=== PATIENT | male | born 1955 | race Caucasian/White ===

== ENCOUNTER → 2024-07-04 | Outpatient (CLI) | payer MEDICARE, SELFPAY ==
--- NOTE | 2024-07-04 09:52 | RAD_ITS ---
STUDY: X-RAY - ORBITS REASON FOR EXAM: Male, 68 years old. Possible metallic foreign body TECHNIQUE: 2 view(s) of the orbits were obtained. COMPARISON: None. FINDINGS: Normal bilateral orbits without a metallic orbital foreign body. Normal visualized facial bones. Normal paranasal sinuses. The soft tissue structures are unremarkable. Metallic dental work RAD/Orbits for Foreign Body IMPRESSION: No demonstrated metallic orbital foreign body. The patient is cleared for an MRI examination. Electronically Signed: Dario Yusuf MD at 10:18 EST ,
--- NOTE | 2024-07-04 09:52 | MRI_ITS ---
EXAM: MR RIGHT LOWER EXTREMITY WITHOUT INTRAVENOUS CONTRAST, FOOT CLINICAL INDICATION: CAPSALITIS RT FOREFOOT, METATARSALGIA TECHNIQUE: Multiplanar and multisequence MR images of the right foot without intravenous contrast. COMPARISON: No relevant prior studies available. FINDINGS: LIGAMENTS: MEDIAL COLLATERAL: Unremarkable. Intact. LATERAL COLLATERAL: Unremarkable. Intact. LISFRANC: Unremarkable. Intact. TENDONS: FLEXOR: Unremarkable. Intact. EXTENSOR: Unremarkable. Intact. PERONEAL: Unremarkable. Intact. TIBIALIS ANTERIOR: Unremarkable. Intact. TIBIALIS POSTERIOR: Unremarkable. Intact. MUSCLES: Muscles are normal. FLUID: No significant joint effusion. PLANTAR FASCIA: Unremarkable. Intact. BONES/JOINTS: Unremarkable. Normal forefoot alignment. No fracture. No joint effusion. No marrow signal alterations. OTHER SOFT TISSUES: Tendons are intact. No ganglion cyst or other suspicious masses or fluid collections. OTHER FINDINGS: Plantar aponeurosis is unremarkable. MRI/Lower Ext/No Jt/w/o IMPRESSION: No significant internal derangement. Electronically Signed: Enio Bagley MD at 21:27 [facility] ,
--- NOTE | 2024-07-04 09:52 | MRI_ITS ---
EXAM: MR RIGHT LOWER EXTREMITY WITHOUT INTRAVENOUS CONTRAST, ANKLE CLINICAL INDICATION: RT FOOT HEEL MASS,PLANTAR FASCIITIS TECHNIQUE: Multiplanar and multisequence MR images of the right ankle without intravenous contrast. COMPARISON: No relevant prior studies available. FINDINGS: LIGAMENTS: ANTERIOR TALOFIBULAR: Unremarkable. Intact. POSTERIOR TALOFIBULAR: Unremarkable. Intact. ANTERIOR TIBIOFIBULAR: Unremarkable. Intact. POSTERIOR TIBIOFIBULAR: Unremarkable. Intact. CALCANEOFIBULAR: Unremarkable. Intact. DELTOID: Signal alteration involving the deep fibers of the deltoid ligamentous complex is concerning for a low to moderate grade sprain injury. SPRING: Unremarkable. Intact. LISFRANC: Unremarkable. Intact. TENDONS: ACHILLES: Unremarkable. Intact. FLEXOR: Unremarkable. Intact. EXTENSOR: Unremarkable. Intact. PERONEAL: Low-density mass involving the peroneus longus tendon at and distal to the distal fibula. This measures 1.4 x 0.9 cm on the axial images. 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 Peroneus brevis tendon is intact and normal in position. TIBIALIS ANTERIOR: Unremarkable. Intact. TIBIALIS POSTERIOR: Unremarkable. Intact. MUSCLES: Unremarkable. Normal bulk and signal. FLUID: Small tibiotalar joint effusion. Or organized fluid collections. SINUS TARSI: Unremarkable. Normal fat in the sinus tarsi. TARSAL TUNNEL: Unremarkable. PLANTAR FASCIA: Thickening and altered signal of the central cord of the plantar aponeurosis with adjacent fluid signal. CARTILAGE: Unremarkable. No osteochondral lesion. Articular cartilage intact. BONES/JOINTS: Small amount of tibiotalar joint fluid. Ankle mortise is intact. Talar dome intact. No fracture or marrow edema. OTHER SOFT TISSUES: Unremarkable. MRI/Lower Ext Joint Only (Routine) IMPRESSION: 1. 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 2. Low to moderate grade sprain injury suspected of the deltoid ligamentous complex. 3. Findings suggest active plantar fasciitis. Electronically Signed: Enio Bagley MD at 22:25 EST ,
== END | disposition home or self-care (01) ==
PROVIDERS: Referring Provider Podiatrist; Visit Provider Podiatrist
DX: M77.51 Other enthesopathy of right foot and ankle (principal); M77.41 Metatarsalgia, right foot; M72.2 Plantar fascial fibromatosis; M79.9 Soft tissue disorder, unspecified
CPT/HCPCS: 70030; 73718; 73721